=== PATIENT | female | born 1950 ===

== ENCOUNTER → 2016-10-05 | Outpatient (CLI) | payer MEDICARE ==
[2016-10-05 19:15] LABS: BASO % 1 % (0-3); EOS % 2 % (0-3); HEMATOCRIT 32.7 % (36.0-47.0); HEMOGLOBIN 10.9 g/dL (12.0-15.5); LYMPH # 2.8 x10^3/uL (1.0-4.8); LYMPH % 40 % (24-48); MEAN CORPUSCULAR HEMOGLOBIN 30 pg (25-35); MEAN CORPUSCULAR HGB CONC 33 g/dL (31-37); MEAN CORPUSCULAR VOLUME 92 fL (79-100); MONO % 7 % (0-9); NEUT % 51 % (31-73); PLATELET COUNT 334 x10^3/uL (140-400); RED BLOOD COUNT 3.58 x10^6/uL (3.50-5.40); RED CELL DISTRIBUTION WIDTH 15.6 % (11.5-14.5); WHITE BLOOD COUNT 7.1 x10^3/uL (4.0-11.0)
[2016-10-05 19:33] LABS: ALBUMIN 3.2 g/dL (3.4-5.0); CALCIUM 8.7 mg/dL (8.5-10.1); CREATININE 0.6 mg/dL (0.6-1.0); GFR 99.4; POTASSIUM 3.8 mmol/L (3.5-5.1); TOTAL BILIRUBIN 0.2 mg/dL (0.2-1.0); TOTAL PROTEIN 6.5 g/dL (6.4-8.2)
== END | disposition home or self-care (01) ==
LOC: SPEC 19:03
PROVIDERS: ATTEND Obstetrics & Gynecology Gynecologic Oncology
DX: I10 Essential (primary) hypertension (principal); K65.1 Peritoneal abscess; D01.0 Carcinoma in situ of colon
CPT/HCPCS: 36415; 80053; 85027